=== PATIENT | female | born 1990 | race Caucasian/White ===

== ENCOUNTER 2018-04-02 10:28 | Inpatient (IN) | payer OTHER ==
[2018-04-02] MEDS ORDERED: FENTANYL 100MCG/2ML SOL IV PRN (10:30)
[2018-04-02] MEDS ORDERED: MEPIVACAINE HCL 1% MPF 30 ML/VIAL SOL INFIL PRN (10:30)
[2018-04-02] MEDS ORDERED: CARBOPROST 250 MCG/ML SOL IM PRN (10:30)
[2018-04-02] MEDS ORDERED: OXYTOCIN 10000 MU/ML SOL IM PRN (10:30)
[2018-04-02] MEDS: LACTATED RINGERS 1,000 ML IV PRN ×2 (10:30→10:50)
[2018-04-02] MEDS ORDERED: SODIUM CHLORIDE 0.9% FLUSH 10 ML SOL IV PRN (10:30)
[2018-04-02] MEDS ORDERED: METHYLERGONOVINE MALEATE 0.2 MG/ML SOL IM PRN (10:30)
[2018-04-02] MEDS ORDERED: FENTANYL 250 MCG/ 5ML SOL ONE (10:48)
[2018-04-02] MEDS ORDERED: ROPIVACAINE HYDROCHLORIDE 5 MG/ML SOL ONE (10:49)
[2018-04-02] MEDS ORDERED: OXYTOCIN 10000 MU/ML SOL ONE (10:51)
[2018-04-02] MEDS ORDERED: APAP/HYDROCODONE 1 EACH TABLET ONE (11:09)
[2018-04-02] MEDS ORDERED: METHYLERGONOVINE MALEATE 0.2 MG TAB PO PRN (11:10)
[2018-04-02] MEDS ORDERED: APAP/HYDROCODONE 1 EACH TABLET PO PRN (11:10)
[2018-04-02] MEDS ORDERED: MEPIVACAINE HCL 1% MPF 30 ML/VIAL SOL ONE (12:38)
[2018-04-02] MEDS ORDERED: FLEET ENEMA PR PRN (16:00)
[2018-04-02] MEDS ORDERED: WITCH HAZEL 1 EA PAD TOP PRN (16:00)
[2018-04-02] MEDS ORDERED: BENZOCAINE/MENTHOL 1 SPR TOP PRN (16:00)
[2018-04-02] MEDS ORDERED: TEMAZEPAM 15MG 15 MG CAP PO PRN (16:00)
[2018-04-02] MEDS ORDERED: BISACODYL 10 MG SUP PR PRN (16:00)
[2018-04-02] MEDS: IBUPROFEN 600 MG TAB PO PRN ×2 (16:39→22:38)
[2018-04-02 18:55] VITALS: RESP 18
[2018-04-02] MEDS: DOCUSATE SODIUM 100 MG SGL PO SCH (20:01)
[2018-04-02] MEDS ORDERED: SODIUM CHLORIDE 0.9% FLUSH 10 ML SOL IV SCH (23:00)
[2018-04-03 02:47] VITALS: O2SAT 94
[2018-04-03] MEDS: IBUPROFEN 600 MG TAB PO PRN (07:37)
[2018-04-03] MEDS: DOCUSATE SODIUM 100 MG SGL PO SCH (08:53)
[2018-04-03] MEDS ORDERED: MULTIVITAMIN2 1 EA TAB PO SCH (09:00)
[2018-04-03] MEDS ORDERED: FOLIC ACID 1 MG TAB PO SCH (09:00)
[2018-04-03 11:01] VITALS: BP 113/76; PULSE 88; TEMP 97.5
== END 2018-04-03 17:50 | disposition home or self-care (01) | DRG 807 ==
LOC: OB 10:28
PROVIDERS: ADMIT Family Medicine; ATTEND Family Medicine
PROC: 10E0XZZ Delivery of Products of Conception, External Approach (ICD-10-PCS; principal; 2018-04-02)
PROC: 0KQM0ZZ Repair Perineum Muscle, Open Approach (ICD-10-PCS; 2018-04-02)
PROC: 6A550ZT Pheresis of Cord Blood Stem Cells, Single (ICD-10-PCS; 2018-04-02)
DX: O80 Encounter for full-term uncomplicated delivery (principal); Z37.0 Single live birth; Z3A.40 40 weeks gestation of pregnancy
CPT/HCPCS: 36415; 85018; J0670; J2590; J2795; J3010; A9270-GY